=== PATIENT | male | born 1975 | race Caucasian/White ===

== ENCOUNTER 2019-02-11 12:17 | Emergency (ER) | payer MEDICARE ==
[2019-02-11] MEDS ORDERED: Cephalexin CAP* 500 MG PO ONE (16:10)
[2019-02-11] MEDS ORDERED: Ibuprofen TAB* 600 MG PO ONE (16:23)
--- NOTE | 2019-02-11 16:46 | ED ---
Adult Trauma - HPI Summary HPI Summary: Patient is a 43-year-old male presenting to the ED with right lower leg laceration and pain, head injury, and R wrist injury s/p fall last evening. He states he fell down approx 12 [address] stairs. He comes in today due to a right lower leg laceration. He has been remaining ambulatory. He is endorsing pain to the right wrist, but is able to flex and extend. He also is endorsing hitting his head without LOC. Denies any confusion, headache, memory loss, visual changes. He is endorsing pain to the right lower extremity with ambulation, better with rest. There is also a 5 cm laceration noted to the right lower extremity, bleeding is controlled. This occurred approximately 15 hours prior to arrival. He denies any other symptoms and states he is otherwise at his baseline. This was a mechanical fall. - History of Current Complaint Chief Complaint: EDFall Stated Complaint: FALL RIGHT LEG PAIN, RIGHT WRIST PAIN, HEAD INJURY Time Seen by Provider: 02/11/19 15:40 Hx Obtained From: Patient Mechanism of Injury: Blunt Trauma Ambulatory at the Scene: No Force: Medium Onset/Duration: Started Hours Ago Onset of Pain: Minutes Onset Severity: Moderate Current Severity: Moderate Pain Intensity: 8 Pain Scale Used: 0-10 Numeric Character: Aching Alleviating Factor(s): Nothing Associated Signs & Symptoms: Positive: Negative. Negative: SOB, Chest Pain, Nausea/Vomiting, Loss of Consciousness, Memory Loss, Numbness/Weakness, Significant Blood Loss - Allergy/Home Medications Allergies/Adverse Reactions: Allergies Allergy/AdvReac Type Severity Reaction Status Date / Time No Known Allergies Allergy Verified 02/11/19 16:21 PMH/Surg Hx/FS Hx/Imm Hx Previously Healthy: Yes - Immunization History Hx Pertussis Vaccination: No Immunizations Up to Date: Yes Infectious Disease History: No Infectious Disease History: Denies: Traveled Outside the [place] in Last 30 Days - Social History Occupation: Employed Full-time Lives: With Family Alcohol Use: None Hx Substance Use: No Substance Use Type: Reports: None Hx Tobacco Use: No Smoking Status (MU): Never Smoked Tobacco Review of Systems Constitutional: Negative Negative: Fever, Chills, Fatigue, Skin Diaphoresis Negative: Palpitations, Chest Pain Negative: Shortness Of Breath, Cough Negative: Abdominal Pain, Vomiting, Diarrhea, Nausea Positive: see HPI Positive: Arthralgia - R lower leg without involvment of the knee, R wrist pain Positive: Other - 5cm laceration to the R lower extremity Neurological: Negative All Other Systems Reviewed And Are Negative: Yes Physical Exam Triage Information Reviewed: Yes Vital Signs On Initial Exam: Initial Vitals Temp Pulse Resp BP Pulse Ox 98.8 F 96 20 155/89 94 02/11/19 12:20 02/11/19 12:20 02/11/19 12:20 02/11/19 12:20 02/11/19 12:20 Vital Signs Reviewed: Yes Appearance: Positive: Well-Appearing, Well-Nourished Skin: Positive: Skin Color Reflects Adequate Perfusion, Other - laceration R lower extremity Head/Face: Positive: Normal Head/Face Inspection Eyes: Positive: EOMI, Conjunctiva Clear Neck: Positive: Supple, No Lymphadenopathy Respiratory/Lung Sounds: Positive: Clear to Auscultation, Breath Sounds Present Cardiovascular: Positive: RRR, Pulses are Symmetrical in both Upper and Lower Extremities Musculoskeletal: Positive: Pain @ - Right lower extremity with laceration, R wrist pain with flexion and extension. no other pain noted on physical exam Neurological: Positive: Sensory/Motor Intact, Alert, Oriented to Person Place, Time, Speech Normal Psychiatric: Positive: Affect/Mood Appropriate AVPU Assessment: Alert Diagnostics - Vital Signs Vital Signs Temp Pulse Resp BP Pulse Ox 02/11/19 14:30 97.8 F 87 14 157/81 98 02/11/19 12:20 98.8 F 96 20 155/89 94 - Laboratory Lab Statement: Any lab studies that have been ordered have been reviewed, and results considered in the medical decision making process. Adult Trauma Course/Dx - Course Course Of Treatment: During this course of treatment, the patient is evaluated for a right lower leg laceration measuring 5 cm in length and 1 cm in width, head injury and R wrist injury s/p fall. CT brain obtained which is negative for any intracranial abnormalities. Cervical spine obtained which is negative. Right wrist x-ray: Subtle fracture of the distal radius with suggestion of intra-articular extension at the distal radial ulnar and radial carpal joints. No additional fracture evident. Cleansed wound thoroughly. Abrasion to the R temporal area. Denies any headache or LOC. Right lower extremity x-ray obtained. 5 cm laceration cleansed wound thoroughly. Discharge - Discharge Plan Referrals: No Primary Care Phys,NOPCP [Primary Care Provider] -
[2019-02-11] MEDS ORDERED: Tetan/Diph/Pertus SYR(Tdap)* 0.5 ML SYR(BOOSTRIX) use SYR IM ONE (17:10)
[2019-02-11 17:36] VITALS: BP 149/78
== END 2019-02-11 17:35 | disposition home or self-care (01) ==
LOC: ED 12:17
DX: S52.91XA Unspecified fracture of right forearm, initial encounter for closed fracture (principal); W10.9XXA Fall (on) (from) unspecified stairs and steps, initial encounter
CPT/HCPCS: 70450; 72125; 90471; 90715; 99282; A9270-GY